=== PATIENT | male | born 1970 | race Caucasian/White ===

== ENCOUNTER → 2020-01-31 | Outpatient (CLI) | payer OTHER ==
[~2020-01-31] MED LIST: DOC250 PO; Fluocinolone Ac15 G1 TP; GABA600 PO; HYDACE5 PO; IBUP200 PO; METR70GEL; PIME1CR TOP; POLY500 PO; POTCHL20ER PO; SILD50TA PO; [UNRECOGNIZED DRUG - OTHER] PO
[2020-01-31 16:12] LABS: Microalbumin, Urine Quant. 9.98 mg/L (0.000-20.000)
== END | disposition home or self-care (01) ==
LOC: LAB SHORT 10:13 → LAB EV 10:13
PROVIDERS: Internal Medicine
DX: R31.9 Hematuria, unspecified (principal)
CPT/HCPCS: 81050; 82043

== ENCOUNTER → 2021-08-18 | Outpatient (CLI) | payer OTHER | END | disposition home or self-care (01) | LOC: LAB SHORT 11:55 → LAB FUT 08-05 15:25 | DX: R21 Rash and other nonspecific skin eruption (principal); L57.0 Actinic keratosis; D22.5 Melanocytic nevi of trunk; D22.62 Melanocytic nevi of left upper limb, including shoulder; L82.1 Other seborrheic keratosis; L85.3 Xerosis cutis; L57.8 Other skin changes due to chronic exposure to nonionizing radiation | CPT/HCPCS: 81050 ==

== ENCOUNTER → 2022-01-14 | Outpatient (CLI) | payer OTHER | END | disposition home or self-care (01) | LOC: LAB SHORT 16:18 → LAB 16:18 | DX: L08.9 Local infection of the skin and subcutaneous tissue, unspecified (principal) | CPT/HCPCS: 87070; 87075; 87077; 87186; 87205 ==

== ENCOUNTER → 2025-02-11 | Outpatient (CLI) | payer OTHER | LOC: LAB 08:21 → LAB SHORT 08:21 | DX: L60.2 Onychogryphosis (principal); B35.1 Tinea unguium | CPT/HCPCS: 88305; 88312 ==